=== PATIENT | female | born 1980 | race Caucasian/White ===

== ENCOUNTER 2021-03-10 16:12 | Outpatient (CLI) | payer OTHER ==
--- NOTE | 2021-03-17 17:05 | Ultrasound Report ---
PROCEDURE: Pelvic w/Transvaginal INDICATIONS: PELVIC AND PERINEAL PAIN TECHNIQUE: Real-time scanning was performed of the pelvic organs, with image documentation. Additional endovagi nal scanning was necessary due to incomplete visualization of the adnexal and endometrial structures by transabdominal scanning. COMPARISON: None. FINDINGS: No pathologic free abdominal or pelvic fluid. Uterus: Uterus is normal in size at 6.8 x 4.0 x 4.4 cm. The endometrium measures 5.3 mm in combined thickness. Ovaries: Normal right ovary. Regressing physiologic cyst associated with the left ovary measuring 1. 5 cm. IMPRESSION: 50 mm regressing left physiologic cyst. Reviewed by: MIRIAM Conrad on 03/17/2021 5:04 PM PDT Approved by: Ovidio Dorsey MD on 03/17/2021 5:04 PM PDT Station ID: [id number]
== END 2021-03-10 16:13 | disposition home or self-care (01) ==
LOC: DI 16:12
PROVIDERS: ATTEND Obstetrics & Gynecology
DX: R10.2 Pelvic and perineal pain (principal); N28.1 Cyst of kidney, acquired